=== PATIENT | female | born 1975 | race Caucasian/White ===

== ENCOUNTER 2016-11-15 11:03 | Day surgery (SDC) | payer OTHER ==
[2016-11-13 11:54] VITALS: BMI 34.3
[~2016-11-15 11:03] MED LIST: LACTATED RINGERS 1,000 ML IV SCH; LIDOCAINE 1% 20 ML VIAL (10MG/ML) FOR IV START INTRADERMA PRN
[2016-11-15 11:12] VITALS: RESP 16; TEMP 98
[2016-11-15 11:21] LABS: Glucose,Whole Blood 111 mg/dL (75-99)
[2016-11-15] MEDS ORDERED: LIDOCAINE 1% INJ 10MG/ML (20 ML MDV) ONE (11:22)
[2016-11-15] MEDS ORDERED: PROPOFOL 10 MG/ML 20 ML VIAL IV ONE (11:22)
--- NOTE | 2016-11-15 11:51 | P.PCN ---
Date of Procedure: 11/15/16 Procedure(s) Performed: PREOPERATIVE DIAGNOSIS: GERD, change in bowel habits, history of diverticulitis POSTOPERATIVE DIAGNOSIS: Mild gastritis, small hiatal hernia, suspected diverticulitis PROCEDURE: 1. EGD with biopsy 2. Colonoscopy ANESTHESIA: [facility] [place] SURGEON: Stephen Garza M.D. SPECIMENS: Antrum ENDOSCOPIC PROCEDURE: The patient was on the endoscopy table in the left decubitus position. The Olympus gastroscope was inserted into the oropharynx and passed under direct visualization to the region of the third portion of the duodenum. From that point the scope was slowly withdrawn inspecting all surfaces carefully. There were no neoplastic inflammatory or polypoid lesions throughout the duodenum. The pylorus was widely patent. The stomach was carefully inspected. There was mild gastritis present. A biopsy of the antrum took place to rule out H. pylori. Retroflexion revealed a small sliding hiatal hernia. The esophagus was then carefully examined. There were no neoplastic inflammatory or polypoid lesions throughout the visualized esophagus. The patient was kept on the endoscopy table in the left decubitus position. The Olympus colonoscope was inserted into the anus and passed under direct visualization to the base of the cecum. The appendiceal orifice was visualized. From that point the scope was slowly withdrawn inspecting all surfaces carefully. There were no neoplastic inflammatory or polypoid lesions throughout the cecum, ascending, transverse, and descending colon. In the mid sigmoid there was an area where the mucosa was slightly inflamed and the lumen was less distensible. This was likely the source of recent diverticulitis. I could not visualize any definite diverticulosis however. The remainder of the sigmoid and rectum appeared normal. Digital rectal examination was normal. The patient was taken to the recovery room in stable condition per anesthesia guidelines. RECOMMENDATIONS: Await biopsy results. Continue diverticular diet
[2016-11-15 12:20] VITALS: BP 125/84; PULSE 78
--- NOTE | 2016-12-19 13:46 | P.HPADDEND ---
H&P Addendum H&P Addendum Date: 11/19/16 Please refer to the office dictated H&P. No changes.
== END 2016-11-15 12:25 | disposition home or self-care (01) ==
LOC: ORWHC2ENDO 11:03
PROVIDERS: ATTEND Surgery
DX: K29.50 Unspecified chronic gastritis without bleeding (principal); K21.9 Gastro-esophageal reflux disease without esophagitis; K44.9 Diaphragmatic hernia without obstruction or gangrene; R19.4 Change in bowel habit; I10 Essential (primary) hypertension; F17.290 Nicotine dependence, other tobacco product, uncomplicated; Z79.52 Long term (current) use of systemic steroids; Z79.899 Other long term (current) drug therapy; Z91.040 Latex allergy status; Z91.09 Other allergy status, other than to drugs and biological substances
CPT/HCPCS: 81025; 88305; 88342; 45378; 43239; J2001; J2704

== ENCOUNTER → 2020-04-11 | Outpatient (CLI) | payer OTHER ==
[2020-04-11 19:03] LABS: Basophils # (A) 0.09 X 10*3/uL (0.00-0.10); Basophils % (A) 0.5 %; Eosinophils # (A) 0.11 X 10*3/uL (0.04-0.35); Eosinophils % (A) 0.6 %; HCT 43.6 % (37.2-46.3); HGB 14.1 g/dL (12.0-15.0); Lymphocytes # (A) 3.96 X 10*3/uL (0.90-5.00); Lymphocytes % (A) 22.7 %; MCH 28.7 pg (27.0-32.0); MCHC 32.3 g/dL (32.0-37.0); MCV 88.8 fL (80.0-97.0); Mean Platelet Volume 10.5 fL (9.5-12.2); Monocytes # (A) 1.33 X 10*3/uL (0.20-1.00); Monocytes % (A) 7.6 %; Neutrophils # (A) 11.92 X 10*3/uL (1.80-7.70); Neutrophils % (A) 68.3 %; Platelet Count 416 X 10*3/uL (140-440); RBC 4.91 X 10*6/uL (4.10-5.20); RDW 13.9 % (11.5-14.5); WBC 17.47 X 10*3/uL (4.50-10.00)
== END | disposition home or self-care (01) ==
LOC: LABWHC1 12:32
PROVIDERS: ATTEND Orthopaedic Surgery
DX: M25.511 Pain in right shoulder (principal); M25.551 Pain in right hip
CPT/HCPCS: 36415; 85025

== ENCOUNTER → 2022-11-28 | Outpatient (CLI) | payer OTHER ==
--- NOTE | 2022-11-28 14:04 | MM ---
Reason for Exam: Additional evaluation requested from abnormal screening. Last screening mammogram was performed 8 month(s) ago. Patient History: Menarche at age 14. First Full-Term at age 23. Premenopausal. Maternal grandmother had breast cancer, age 75. Risk Values: Mila 5 year model risk: 0.7%. NCI Lifetime model risk: 8.6%. Prior Study Comparison: 07/22/2013 Bilateral Diagnostic Mammogram, [facility]. 04/15/2022 Bilateral MG 3D screening mammo w/cad, [facility]. 05/02/2022 Left MG 3D work up w/cad LT, [facility]. Tissue Density: Left: There are scattered fibroglandular densities. Findings: Analyzed By CAD. Small 6 mm area of focal asymmetry 5 to 6:00 position middle depth remained unchanged for 6 months. Given the persistence, further ultrasound evaluation is recommended. Overall Assessment: Incomplete: need additional imaging evaluation, BI-RAD 0 Management: Diagnostic Breast Ultrasound of the left breast. Electronically signed and approved by: Lilly Churchill M.D. Radiologist
--- NOTE | 2022-11-28 14:26 | USB ---
Reason for Exam: Mammographic abnormality. Patient History: Menarche at age 14. First Full-Term at age 23. Premenopausal. Maternal grandmother had breast cancer, age 75. Risk Values: Mila 5 year model risk: 0.7%. NCI Lifetime model risk: 8.6%. Technique: Method: Targeted. Prior Study Comparison: 07/22/2013 Bilateral Diagnostic Mammogram, [facility]. 07/22/2013 Bilateral Diagnostic Ultrasound, [facility]. 04/15/2022 Bilateral MG 3D screening mammo w/cad, [facility]. 05/02/2022 Left MG 3D work up w/cad LT, [facility]. Findings: The lower section of the breast of the left breast, the axilla of the left breast and the retroareolar of the left breast were scanned. Targeted ultrasound left breast 4:00 to 7:00 position including the subareolar region and axilla. No solid or cystic lesion or axillary lymphadenopathy. Overall Assessment: Probably benign, BI-RAD 3 Management: Diagnostic Mammogram of both breasts in 6 months. 1. Total one-year follow-up left breast and annual exam of the right breast. 2. A clinical breast exam by your physician is recommended on an annual basis and results should be correlated with mammographic findings. This exam should not preclude additional follow-up of suspicious palpable abnormalities. 3. Results were given to the patient verbally at the time of exam. Electronically signed and approved by: Lilly Churchill M.D. Radiologist
== END | disposition home or self-care (01) ==
LOC: RADMAMWWP 13:02
PROVIDERS: ATTEND Obstetrics & Gynecology
DX: R92.8 Other abnormal and inconclusive findings on diagnostic imaging of breast (principal); Z80.3 Family history of malignant neoplasm of breast
CPT/HCPCS: 77061; 77065